=== PATIENT | female | born 1995 | race Two or more races ===

== ENCOUNTER 2017-06-30 15:10 | Observation (INO) | payer MEDICAID ==
[2017-06-30] MEDS ORDERED: PREN-96 PO (15:30)
== END 2017-06-30 16:50 | disposition home or self-care (01) | DRG 566 ==
LOC: LDRP 15:10
PROVIDERS: ADMIT Obstetrics & Gynecology; ATTEND Obstetrics & Gynecology
DX: O26.892 Other specified pregnancy related conditions, second trimester (principal); R10.9 Unspecified abdominal pain; Z3A.00 Weeks of gestation of pregnancy not specified
CPT/HCPCS: 59025; 81002; G0378

== ENCOUNTER 2017-08-28 14:50 | Observation (INO) | payer MEDICAID ==
[~2017-08-28 14:50] MED LIST: PREN-96 PO
== END 2017-08-28 15:45 | disposition home or self-care (01) | DRG 566 ==
LOC: LDRP 14:50
PROVIDERS: ADMIT Obstetrics & Gynecology; ATTEND Obstetrics & Gynecology
DX: O48.0 Post-term pregnancy (principal); Z3A.40 40 weeks gestation of pregnancy
CPT/HCPCS: 59025; 76818; 81002; G0378

== ENCOUNTER 2017-08-30 13:00 | Observation (INO) | payer MEDICAID | END 2017-08-30 14:15 | disposition home or self-care (01) | DRG 566 | LOC: LDRP 13:00 | PROVIDERS: ADMIT Specialist; ATTEND Specialist | DX: O48.0 Post-term pregnancy (principal); O62.9 Abnormality of forces of labor, unspecified; Z3A.40 40 weeks gestation of pregnancy | CPT/HCPCS: 59025; 76817; 76818; 81002; G0378 ==

== ENCOUNTER 2017-08-31 19:18 | Observation (INO) | payer MEDICAID ==
[2017-09-01] MEDS ORDERED: PREN-96 PO (09:38)
== END 2017-08-31 20:35 | disposition home or self-care (01) | DRG 566 ==
LOC: LDRP 19:18
PROVIDERS: ADMIT Specialist; ATTEND Specialist
DX: O62.9 Abnormality of forces of labor, unspecified (principal); O48.0 Post-term pregnancy; Z3A.40 40 weeks gestation of pregnancy
CPT/HCPCS: 59025; 76818; 81002; G0378

== ENCOUNTER 2017-09-01 09:15 | Observation (INO) | payer MEDICAID ==
[2017-09-01] MEDS ORDERED: PREN-96 PO (09:38)
== END 2017-09-01 10:00 | disposition home or self-care (01) | DRG 566 ==
LOC: LDRP 09:15
PROVIDERS: ADMIT Specialist; ATTEND Specialist
DX: O62.9 Abnormality of forces of labor, unspecified (principal); Z3A.40 40 weeks gestation of pregnancy
CPT/HCPCS: 59025; 81002; G0378

== ENCOUNTER 2018-03-22 19:49 | Emergency (ER) | payer SELFPAY ==
[~2018-03-22] VITALS: Ht 160 cm; Wt 61.2 kg
[2018-03-22 20:00] VITALS: BP 106/59
[2018-03-22] MEDS ORDERED: LIDOCAINE W/ EPINEPHRINE 2% INJ 20ML VIAL IJ ONE (20:45)
[2018-03-22] MEDS ORDERED: cefTRIAXone SOD 1,000 MG VL IM ONE (20:45)
[2018-03-22] MEDS ORDERED: LIDOCAINE W/ EPINEPHRINE 1% 20ML VIAL ONE (21:13)
== END 2018-03-22 22:04 | disposition home or self-care (01) ==
LOC: ER 19:49
DX: S61.411A Laceration without foreign body of right hand, initial encounter (principal); Z91.040 Latex allergy status; W25.XXXA Contact with sharp glass, initial encounter; Y93.89 Activity, other specified; Y99.8 Other external cause status; Y92.89 Other specified places as the place of occurrence of the external cause
CPT/HCPCS: 12002; 96372; 99283; J0696

== ENCOUNTER 2018-03-30 11:57 | Emergency (ER) | payer SELFPAY ==
[~2018-03-30] VITALS: Ht 160 cm; Wt 61.2 kg
[2018-03-30 12:19] VITALS: BP 116/73
== END 2018-03-30 13:00 | disposition home or self-care (01) ==
LOC: ER 11:57
DX: S61.411D Laceration without foreign body of right hand, subsequent encounter (principal); Z48.02 Encounter for removal of sutures; Z91.040 Latex allergy status

== ENCOUNTER 2018-10-08 11:00 | Observation (INO) | payer MEDICAID | END 2018-10-08 11:40 | disposition home or self-care (01) | DRG 566 | LOC: LDRP 11:00 | PROVIDERS: ADMIT Obstetrics & Gynecology; ATTEND Obstetrics & Gynecology | DX: O23.42 Unspecified infection of urinary tract in pregnancy, second trimester (principal); E86.0 Dehydration; O21.1 Hyperemesis gravidarum with metabolic disturbance; Z3A.27 27 weeks gestation of pregnancy | CPT/HCPCS: 59025; 81002; G0378 ==

== ENCOUNTER 2018-10-15 03:38 | Observation (INO) | payer MEDICAID | END 2018-10-15 05:23 | disposition home or self-care (01) | DRG 566 | LOC: LDRP 03:38 | PROVIDERS: ADMIT Specialist; ATTEND Specialist | DX: O21.1 Hyperemesis gravidarum with metabolic disturbance (principal); O23.43 Unspecified infection of urinary tract in pregnancy, third trimester; O26.893 Other specified pregnancy related conditions, third trimester; O98.513 Other viral diseases complicating pregnancy, third trimester; J00 Acute nasopharyngitis [common cold]; R10.9 Unspecified abdominal pain; Z3A.28 28 weeks gestation of pregnancy | CPT/HCPCS: 59025; 81002; G0378; 96365; 96366 ==

== ENCOUNTER 2019-01-04 08:20 | Inpatient (IN) | payer MEDICAID ==
[~2019-01-04] VITALS: Ht 160 cm; Wt 72.6 kg
[2019-01-04] MEDS ORDERED: LACT. RINGERS/OXYTOCIN 20UNITS 1,000 ML IV SCH (09:07)
[2019-01-04] MEDS ORDERED: DERMOPLAST 60ML BOTTLE TOP PRN (09:15)
[2019-01-04] MEDS ORDERED: WITCH HAZEL-GLYCERIN PAD TOP PRN (09:15)
[2019-01-04] MEDS ORDERED: NALBUPHINE HCL 10 MG/1ml INJECTION IM PRN (09:15)
[2019-01-04] MEDS ORDERED: PHISODERM TOP SOLN 240ML BTL TOP PRN (09:15)
[2019-01-04] MEDS ORDERED: LIDOCAINE 1% (LOCAL ANESTH.) PF 5ml SDV IJ ONE (09:15)
[2019-01-04 09:55] LABS: Urine Bacteria FEW /hpf (None Seen); Urine Blood Negative /uL (Negative); Urine Mucus FEW (None Seen); Urine Specific Gravity 1.021 (1.001-1.035); Urine WBC 5 /hpf (0 - 5)
[2019-01-04] MEDS: LACTATED RINGER'S 1,000 ML IV SCH (09:55)
[2019-01-04 09:57] LABS: Basophils # (auto) 0 uL; Basophils % (auto) 0.3 % (0.0-2.0); Eosinophils # (auto) 0 uL; Eosinophils % (auto) 0.6 % (0.0-7.0); Hematocrit 36.1 % (36.0-46.0); Hemoglobin 12.4 g/dL (12.2-16.2); Lymphocytes # (auto) 1.5 uL; Lymphocytes % (auto) 19.7 % (10.0-50.0); Mean Corpuscular Hemoglobin 31.7 pg (28.0-32.0); Mean Corpuscular Hgb Conc. 34.3 g/dL (32.0-36.0); Mean Corpuscular Volume 92.6 fL (80.0-100.0); Monocytes # (auto) 0.6 uL; Monocytes % (auto) 7.1 % (0.0-12.0); Neutrophils # (auto) 5.6 uL; Neutrophils % (auto) 72.3 % (37.0-80.0); Nucleated Red Blood Cells % 0.1 %; Platelet Count (auto) 174 10^3/uL (140-450); Red Cell Distribution Width 14.7 % (11.8-14.3); White Blood Cell 7.8 10^3/uL (4.4-10.8)
[2019-01-04 10:05] LABS: INR 0.88 (0.9-1.15); Prothrombin Time 9.5 sec (9.27-12.13)
[2019-01-04 10:09] LABS: Albumin 2.8 g/dL (3.4-5.0); Calcium 8.5 mg/dL (8.5-10.1); Potassium 3.6 mmol/L (3.5-5.1)
[2019-01-04 10:12] LABS: Bilirubin, Total 0.3 mg/dL (0.2-1.0); Total Protein 6.6 g/dL (6.4-8.2)
[2019-01-05] MEDS ORDERED: TERBUTALINE SULFATE 1 MG/ML 1ML VIAL SC ONE (00:30)
[2019-01-05] MEDS ORDERED: PROMETHAZINE HCL 25 MG/ML 1ML IV PRN (00:30)
[2019-01-05] MEDS: LACTATED RINGER'S 1,000 ML IV SCH ×3 (01:07→06:41)
[2019-01-05] MEDS ORDERED: ePHEDrine SULFATE 50 MG/ML AMP IV ONE ×2 (05:30→05:45)
[2019-01-05] MEDS ORDERED: NALOXONE HCL 0.4 MG/ML VIAL IV ONE ×2 (05:30→05:45)
[2019-01-05] MEDS ORDERED: LIDOCAINE HCL 2 %PF INJ 10ML AMP IJ ONE (05:30)
[2019-01-05] MEDS ORDERED: fentaNYL W ROPIVACAINE 150 ML EPI SCH ×2 (05:30→05:45)
[2019-01-05] MEDS ORDERED: LACTATED RINGER'S 500 ML IV ONE (05:34)
[2019-01-05] MEDS ORDERED: SODIUM CHLORIDE 0.9% 500 ML IV PRN (05:34)
[2019-01-05] MEDS ORDERED: LIDOCAINE W/ EPINEPHRINE 1 % INJ 30ML ONE (05:40)
[2019-01-05] MEDS ORDERED: fentaNYL CITRATE 100 MCG/2 ML VL IV ONE ×2 (05:45→06:00)
[2019-01-05] MEDS ORDERED: LIDOCAINE 2%HCL (LOCAL ANESTH.) INJ 20ML MDV IJ ONE (05:45)
[2019-01-05] MEDS ORDERED: fentaNYL CITRATE 100 MCG/2 ML VL ONE (05:59)
[2019-01-05 06:07] LABS: RPR Non Reactive (Non Reactive)
[2019-01-05] MEDS ORDERED: LIDOCAINE W/ EPINEPHRINE 1% 20ML VIAL ID ONE (06:45)
[2019-01-05] MEDS ORDERED: LACT. RINGERS/OXYTOCIN 20UNITS 1,000 ML IV SCH (07:30)
[2019-01-05] MEDS ORDERED: IBUPROFEN 600 MG TAB PO PRN (12:00)
[2019-01-05 13:00] VITALS: BP 107/55
[2019-01-05 16:00] VITALS: BP 112/57
[2019-01-05 19:00] VITALS: BP 113/64
[2019-01-05 22:49] VITALS: BP 105/50
[2019-01-06 02:45] VITALS: BP 116/64
[2019-01-06 07:15] VITALS: BP 112/60
--- NOTE | 2019-01-06 10:00 | NUR ---
Teaching: Reviewed information in [facility] booklet with patient. Discussed benefits of and risks associated with not . Discussed different positions, proper latch, feeding cues, and baby-led . Provided information of medication side effects related to . All questions and concerns addressed at this time. Patient verbalized understanding of information.
[2019-01-06 10:40] VITALS: BP 112/59
--- NOTE | 2019-01-06 11:50 | NUR ---
Discharge: Discharge instructions given as ordered. Pt encouraged to follow up with DIESEL TRUCK CRANE OPERATOR as instructed. All questions and concerns addressed. Patient verbalized understanding. Medication reconciliation completed and copy given to patient. All required/requested vaccines given and copies of vaccinations given to patient. Patient encouraged to prepare to depart unit.
--- NOTE | 2019-01-06 13:00 | NUR ---
Discharge: Patient taken to vehicle via wheelchair with all personal belongings, accompanied by staff and family member. No distress noted at time of departure, no adverse changes in status since initial assessment.
== END 2019-01-06 13:00 | disposition home or self-care (01) | DRG 560 ==
LOC: LDRP 08:20
PROVIDERS: ADMIT Specialist; ATTEND Specialist
PROC: 10E0XZZ Delivery of Products of Conception, External Approach (ICD-10-PCS; principal; 2019-01-05)
PROC: 3E0R3BZ Introduction of Anesthetic Agent into Spinal Canal, Percutaneous Approach (ICD-10-PCS; 2019-01-05)
PROC: 00HU33Z Insertion of Infusion Device into Spinal Canal, Percutaneous Approach (ICD-10-PCS; 2019-01-05)
PROC: 10907ZC Drainage of Amniotic Fluid, Therapeutic from Products of Conception, Via Natural or Artificial Opening (ICD-10-PCS; 2019-01-05)
PROC: 0UQGXZZ Repair Vagina, External Approach (ICD-10-PCS; 2019-01-05)
DX: O71.4 Obstetric high vaginal laceration alone (principal); Z37.0 Single live birth; Z3A.39 39 weeks gestation of pregnancy
CPT/HCPCS: 36415; 59025; 59409; 62282; 80053; 81001; 85025; 85610; 85730; 86592; 86850; 86900; 86901; 87340; 96361; 96365; 96366; 96374; G0378; J2590; J3010

== ENCOUNTER 2020-10-27 11:25 | Observation (INO) | payer MEDICAID, OTHER ==
[~2020-10-27] VITALS: Ht 160 cm; Wt 69.4 kg
== END 2020-10-27 14:20 | disposition home or self-care (01) ==
LOC: LDRP 11:25
PROVIDERS: ADMIT Specialist; ATTEND Specialist
DX: O62.9 Abnormality of forces of labor, unspecified (principal); Z3A.31 31 weeks gestation of pregnancy; Z91.040 Latex allergy status
CPT/HCPCS: 59025; 76815; 81002; G0378

== ENCOUNTER 2020-11-22 18:15 | Observation (INO) | payer MEDICAID | END 2020-11-22 21:23 | disposition home or self-care (01) | LOC: LDRP 18:15 | PROVIDERS: ADMIT Obstetrics & Gynecology; ATTEND Obstetrics & Gynecology | DX: O62.9 Abnormality of forces of labor, unspecified (principal); Z3A.34 34 weeks gestation of pregnancy | CPT/HCPCS: 59025; 76815; 81002; G0378 ==

== ENCOUNTER 2020-12-26 00:14 | Observation (INO) | payer MEDICAID | END 2020-12-26 01:15 | disposition home or self-care (01) | LOC: LDRP 00:14 | PROVIDERS: ADMIT Obstetrics & Gynecology; ATTEND Obstetrics & Gynecology | DX: O62.9 Abnormality of forces of labor, unspecified (principal); Z3A.39 39 weeks gestation of pregnancy | CPT/HCPCS: 59025; 81002; G0378 ==

== ENCOUNTER 2020-12-30 19:15 | Observation (INO) | payer MEDICAID ==
[~2020-12-30] VITALS: Ht 160 cm; Wt 73.5 kg
== END 2020-12-30 22:10 | disposition home or self-care (01) ==
LOC: LDRP 19:15
PROVIDERS: ADMIT Obstetrics & Gynecology; ATTEND Obstetrics & Gynecology
DX: O48.0 Post-term pregnancy (principal); O26.893 Other specified pregnancy related conditions, third trimester; N89.8 Other specified noninflammatory disorders of vagina; O62.9 Abnormality of forces of labor, unspecified; Z3A.40 40 weeks gestation of pregnancy
CPT/HCPCS: 59025; 76818; 81002; G0378

== ENCOUNTER 2021-01-01 14:32 | Observation (INO) | payer MEDICAID | END 2021-01-01 15:55 | disposition home or self-care (01) | LOC: LDRP 14:32 | PROVIDERS: ADMIT Specialist; ATTEND Specialist | DX: O48.0 Post-term pregnancy (principal); O41.03X0 Oligohydramnios, third trimester, not applicable or unspecified; Z3A.40 40 weeks gestation of pregnancy | CPT/HCPCS: 59025; 76818; 81002; G0378 ==

== ENCOUNTER 2021-01-03 12:57 | Inpatient (IN) | payer MEDICAID ==
[~2021-01-03] VITALS: Ht 30.5 cm; Wt 0.5 kg
[2021-01-03] MEDS ORDERED: METHYLERGONOVINE MALEATE 0.2 MG/ML AMP IM PRN (14:00)
[2021-01-03] MEDS ORDERED: TERBUTALINE SULFATE 1 MG/ML 1ML VIAL SC PRN (14:00)
[2021-01-03] MEDS ORDERED: ONDANSETRON HCL 4 MG/2 ML VIAL IV PRN (14:00)
[2021-01-03] MEDS ORDERED: DERMOPLAST 60ML BOTTLE TOP PRN (14:00)
[2021-01-03] MEDS ORDERED: CARBOPROST TROMETHAMINE 250 MCG/1ML VIAL IM PRN (14:00)
[2021-01-03] MEDS ORDERED: LACT. RINGERS/OXYTOCIN 20UNITS 1,000 ML IV SCH (14:00)
[2021-01-03] MEDS ORDERED: WITCH HAZEL-GLYCERIN PAD TOP PRN (14:00)
[2021-01-03] MEDS ORDERED: miSOPROStol 100 mcg TAB PR PRN (14:00)
[2021-01-03] MEDS ORDERED: miSOPROStol 100 mcg TAB SL PRN (14:00)
[2021-01-03] MEDS ORDERED: LACT. RINGERS/OXYTOCIN 20UNITS 1,000 ML IV ONE (14:00)
[2021-01-03] MEDS ORDERED: LIDOCAINE 2%HCL (LOCAL ANESTH.) INJ 20ML MDV IJ PRN (14:00)
[2021-01-03] MEDS ORDERED: PHISODERM TOP SOLN 240ML BTL TOP PRN (14:00)
[2021-01-03] MEDS: LACTATED RINGER'S 1,000 ML IV SCH ×2 (14:35→18:31)
[2021-01-03 14:48] LABS: Basophils # (auto) 0 10 ^3/uL (0-0.2); Basophils % (auto) 0.5 % (0.0-2.0); Eosinophils # (auto) 0 10 ^3/uL (0-0.8); Eosinophils % (auto) 0.6 % (0.0-7.0); Hematocrit 31.3 % (36.0-46.0); Hemoglobin 11.1 g/dL (12.2-16.2); Lymphocytes # (auto) 1.5 10 ^3/uL (0.4-5.4); Lymphocytes % (auto) 20.3 % (10.0-50.0); Mean Corpuscular Hemoglobin 31.7 pg (28.0-32.0); Mean Corpuscular Hgb Conc. 35.3 g/dL (32.0-36.0); Mean Corpuscular Volume 89.7 fL (80.0-100.0); Monocytes # (auto) 0.5 10 ^3/uL (0-1.3); Monocytes % (auto) 6.6 % (0.0-12.0); Neutrophils # (auto) 5.3 10 ^3/uL (1.6-8.6); Nucleated Red Blood Cells % 0.1 %; Platelet Count (auto) 183 10^3/uL (140-450); Red Cell Distribution Width 15.8 % (11.8-14.3); White Blood Cell 7.3 10^3/uL (4.4-10.8)
[2021-01-03 15:02] LABS: Albumin 2.8 g/dL (3.4-5.0); BUN/Creatinine Ratio 17.4; Calcium 8.3 mg/dL (8.5-10.1); Potassium 3.8 mmol/L (3.5-5.1)
[2021-01-03 15:05] LABS: Bilirubin, Total 0.3 mg/dL (0.2-1.0); Total Protein 6.5 g/dL (6.4-8.2)
[2021-01-03 15:06] LABS: INR 0.91 (0.9-1.15); Partial Thromboplastin Time 26.6 sec (23.0-31.2)
[2021-01-03 15:26] LABS: Alcohol, Urine < 3.0 mg/dL (0-10); Amphetamine Screen, Urine NEGATIVE (NEGATIVE); Barbiturate Scree,Urine NEGATIVE (NEGATIVE); Benzodiazephine Screen, Urine NEGATIVE (NEGATIVE); Cannabinoid Screen, Urine NEGATIVE (NEGATIVE); Cocaine Screen, Urine NEGATIVE (NEGATIVE); Opiate Scree,Urine NEGATIVE (NEGATIVE); Phencyclidine Screen, Urine NEGATIVE (NEGATIVE); Urine Bacteria FEW /hpf (None Seen); Urine Blood Negative /uL (Negative); Urine Budding Yeast FEW /hpf (None Seen); Urine Specific Gravity 1.011 (1.001-1.035); Urine WBC 5 /hpf (0 - 5)
[2021-01-03] MEDS ORDERED: miSOPROStol 50 MCG per PRE-CUT 1/2 TAB PO PRN (15:45)
[2021-01-03] MEDS ORDERED: ROPIVACAINE HCL 200 ML EPI SCH ×3 (22:00→23:30)
[2021-01-03] MEDS ORDERED: fentaNYL CITRATE 100 MCG/2 ML VL IV ONE ×2 (22:00→23:30)
[2021-01-03] MEDS ORDERED: LIDOCAINE HCL 2 %PF INJ 10ML AMP IJ ONE (22:00)
[2021-01-03] MEDS ORDERED: ePHEDrine SULFATE 50 MG/ML AMP IV ONE ×2 (22:00→23:30)
[2021-01-03] MEDS ORDERED: LACTATED RINGER'S 1,000 ML IV ONE (22:00)
[2021-01-03] MEDS ORDERED: DIPHENOXYLATE W/ATROPINE 2.5 MG TAB PO SCH (22:00)
[2021-01-03] MEDS ORDERED: NALOXONE HCL 0.4 MG/ML VIAL IV ONE ×2 (22:00→23:30)
[2021-01-03] MEDS ORDERED: ROPIVACAINE 0.5% (5MG/ML) 20ML AMPULE IJ ONE (22:00)
[2021-01-03] MEDS ORDERED: LACTATED RINGER'S 500 ML IV ONE (23:30)
[2021-01-03] MEDS ORDERED: SODIUM CHLORIDE 0.9% 500 ML IV PRN (23:30)
[2021-01-03] MEDS ORDERED: LIDOCAINE 2%HCL (LOCAL ANESTH.) INJ 20ML MDV IJ ONE (23:30)
[2021-01-04] MEDS: LACTATED RINGER'S 1,000 ML IV SCH ×2 (02:43→14:00)
[2021-01-04 07:30] VITALS: BP 100/55
[2021-01-04] MEDS: IBUPROFEN 600 MG TAB PO PRN ×3 (09:11→22:42)
[2021-01-04 11:10] VITALS: BP 102/58
[2021-01-04 15:07] VITALS: BP 111/72
[2021-01-04 19:00] VITALS: BP 110/61
[2021-01-04 23:15] VITALS: BP 104/58
[2021-01-05 03:07] VITALS: BP 112/61
[2021-01-05] MEDS ORDERED: POTASSIUM CHL 20 Meq TABLET PO ONE (07:00)
[2021-01-05 07:08] VITALS: BP 96/50
[2021-01-05 08:06] LABS: RPR Non Reactive (Non Reactive)
== END 2021-01-05 08:55 | disposition home or self-care (01) | DRG 560 ==
LOC: LDRP 12:57
PROVIDERS: ADMIT Specialist; ATTEND Specialist
PROC: 10E0XZZ Delivery of Products of Conception, External Approach (ICD-10-PCS; principal; 2021-01-04)
PROC: 3E0R3BZ Introduction of Anesthetic Agent into Spinal Canal, Percutaneous Approach (ICD-10-PCS; 2021-01-04)
PROC: 00HU33Z Insertion of Infusion Device into Spinal Canal, Percutaneous Approach (ICD-10-PCS; 2021-01-04)
PROC: 3E0D7GC Introduction of Other Therapeutic Substance into Mouth and Pharynx, Via Natural or Artificial Opening (ICD-10-PCS; 2021-01-04)
DX: O48.0 Post-term pregnancy (principal); Z20.822 Contact with and (suspected) exposure to COVID-19; O76 Abnormality in fetal heart rate and rhythm complicating labor and delivery; Z37.0 Single live birth; Z3A.41 41 weeks gestation of pregnancy
CPT/HCPCS: 36415; 59025; 62282; 80053; 80307; 81001; 85025; 85610; 85730; 86592; 86850; 86900; 86901; 87426; 94762; 96360; 96361; 96365; G0378; J2590

== ENCOUNTER 2025-03-12 11:26 | Outpatient (CLI) | payer MEDICAID ==
[2025-03-12 11:46] LABS: Basophils # (auto) 0 10 ^3/uL (0-0.2); Basophils % (auto) 0.5 % (0.0-2.0); Eosinophils # (auto) 0 10 ^3/uL (0-0.8); Eosinophils % (auto) 0.2 % (0.0-7.0); Hematocrit 29.6 % (36.0-46.0); Hemoglobin 10.5 g/dL (12.2-16.2); Lymphocytes # (auto) 1.4 10 ^3/uL (0.4-5.4); Lymphocytes % (auto) 17.2 % (10.0-50.0); Mean Corpuscular Hemoglobin 30.6 pg (28.0-32.0); Mean Corpuscular Hgb Conc. 35.3 g/dL (32.0-36.0); Mean Corpuscular Volume 86.5 fL (80.0-100.0); Monocytes # (auto) 0.4 10 ^3/uL (0-1.3); Monocytes % (auto) 5.2 % (0.0-12.0); Neutrophils # (auto) 6.3 10 ^3/uL (1.6-8.6); Neutrophils % (auto) 76.9 % (37.0-80.0); Platelet Count (auto) 175 10^3/uL (140-450); Red Blood Cells 3.42 10^6/uL (4.0-5.20); Red Cell Distribution Width 16.2 % (11.8-14.3); White Blood Cell 8.3 10^3/uL (4.4-10.8)
[2025-03-15 04:07] LABS: Chlamydia Trachomatis, NAA Negative (Negative); Neisseria gonorrhoeae, NAA Negative (Negative)
== END 2025-03-12 17:00 | disposition home or self-care (01) ==
LOC: LAB 11:26
PROVIDERS: ATTEND Obstetrics & Gynecology
DX: Z34.80 Encounter for supervision of other normal pregnancy, unspecified trimester (principal); Z72.51 High risk heterosexual behavior; Z3A.00 Weeks of gestation of pregnancy not specified
CPT/HCPCS: 36415; 85025; 86780

== ENCOUNTER 2025-04-02 17:30 | Observation (INO) | payer MEDICAID ==
--- NOTE | 2025-04-02 19:20 | DVHDS2 ---
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 She was painting and slipped. She caught herself and did not fall. PNC with Dr. Alexander, uncomplicated. Denies UCs/LOF/VB/IGNACIO/vision changes/RUQ pain. Endorses +FM. 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 Condition on Discharge: Stable Disposition: Home Discharge Instructions: Diet: Regular Activity: No Restrictions, As Tolerated Medications: see med list Follow Up Care: Specialist: f/u with Dr. Alexander in office as scheduled on 04/04/25 Discharge Statement: "Patient was advised to return to the ER or call 911 if any headaches, dizziness, shortness of breath, chest pain, abdominal pain, bleeding, fevers, or worsening of medical condition. Patient was counseled about treatment plan, medications, possible side effects, patientverbalized understanding. All questions were answered to the best of my ability. This discharge took greater then 30 minutes in planning, reviewing documentation, counseling the patient, and discussing with other team members." Visit Coding OBGYN Date of Service: Apr 02, 2025 Billing Provider: CRISS BALBUENA CNM MEDICAID BUSINESS ANALYST Common Visit Codes: 54937-OCRYBQY OBS CARE (MOD) MEDICAID BUSINESS ANALYST Procedure Codes: 25581-98- NON-STRESS TEST CRISS BALBUENA CNM Apr 02, 2025 19:20
--- NOTE | 2025-04-02 19:39 | DVH ---
ULTRASOUND BIOPHYSICAL PROFILE CLINICAL HISTORY: Fall COMPARISON: None TECHNIQUE: Real-time grayscale, color flow and M-mode imaging of the gravid uterus is performed. FINDINGS: Single living intrauterine gestation. Vertex presentation. heart rate 180 beats per minute. Placenta is fundal. No definite evidence of abruption or previa. Amniotic fluid index: 11.8 cm Biophysical profile: 8 out of 8. (2 breathing, 2 activity, 2 tone, 2 [place]) IMPRESSION: Biophysical profile score 8/8.
== END 2025-04-02 19:12 | disposition home or self-care (01) ==
LOC: LDRP 17:30
PROVIDERS: ADMIT Obstetrics & Gynecology; ATTEND Obstetrics & Gynecology
DX: O26.893 Other specified pregnancy related conditions, third trimester (principal); R55 Syncope and collapse; Z3A.38 38 weeks gestation of pregnancy; Z98.890 Other specified postprocedural states; Z79.899 Other long term (current) drug therapy
CPT/HCPCS: 59025; 76819; 81002; 94760; G0378

== ENCOUNTER 2025-04-11 06:40 | Observation (INO) | payer MEDICAID ==
--- NOTE | 2025-04-12 11:23 | DVH ---
CLINICAL HISTORY: Term . COMPARISON: US BIOPHYSICAL PROFILE on DOS: 04/02/25 TECHNIQUE: biophysical profile was performed. Transabdominal sonographic images of the fetus we re obtained. FINDINGS: The fetus is in cephalic position. heart rate measures 129 BPM. Amniotic fluid index measures 11.2 cm. The placenta is posterior in position without evidence of previa or abruption. BPP profile is an overall score of 8/8, with 2/2 points for breathing, with at least one episode of breathing over a 30 second duration during a 30 minute observation, 2/2 points for m ovements, with 3 or more discrete body or limb movements, 2/2 points for tone, with one or more episodes of extremity extension with return to flexion, or opening and closing of hand, and 2/ 2 points for amniotic fluid, with at least 1 pocket of amniotic fluid that measures 2 cm in 2 perpend icular planes. IMPRESSION: BPP score of 8/8.
--- NOTE | 2025-04-13 08:21 | DVHDS2 ---
Physician Discharge Progress N Final Diagnosis: 40 WKS LABOR CHECK Operations or Procedures: Operations or Procedures NSTR REACTIVE REVIWED,DENNYSO Consultations: Consultations REFUSES INDUCTION Condition on Discharge: Good Disposition: Home Discharge Instructions: Diet: Regular Activity: No Restrictions, As Tolerated Medications: NA Follow Up Care: Specialist: 2D Discharge Statement: "Patient was advised to return to the ER or call 911 if any headaches, dizziness, shortness of breath, chest pain, abdominal pain, bleeding, fevers, or worsening of medical condition. Patient was counseled about treatment plan, medications, possible side effects, patientverbalized understanding. All questions were answered to the best of my ability. This discharge took greater then 30 minutes in planning, reviewing documentation, counseling the patient, and discussing with other team members." Visit Coding OBGYN Date of Service: Apr 12, 2025 Billing Provider: SANCHEZ IRAHETA DO UNEMPLOYMENT SPECIALIST Common Visit Codes: 45000-[id number] OBS CARE (HIGH) UNEMPLOYMENT SPECIALIST Procedure Codes: 54377-55- NON-STRESS TEST SANCHEZ IRAHETA DO Apr 13, 2025 08:21
== END 2025-04-12 12:14 | disposition home or self-care (01) ==
LOC: LDRP 04-12 10:21
PROVIDERS: ADMIT Obstetrics & Gynecology; ATTEND Obstetrics & Gynecology
DX: Z36.89 Encounter for other specified antenatal screening (principal); Z3A.40 40 weeks gestation of pregnancy; Z79.899 Other long term (current) drug therapy; Z98.890 Other specified postprocedural states
CPT/HCPCS: 59025; 76819; 81002; G0378

== ENCOUNTER 2025-04-14 06:34 | Observation (INO) | payer MEDICAID ==
--- NOTE | 2025-04-14 13:47 | DVH ---
CLINICAL HISTORY: post dates COMPARISON: US BIOPHYSICAL PROFILE on DOS: 04/12/25, US BIOPHYSICAL PROFILE on DOS: 04/02/25 TECHNIQUE: biophysical profile was performed. Transabdominal sonographic images of the fetus we re obtained. FINDINGS: The fetus is in cephalic position. heart rate measures 147 BPM. Amniotic fluid index measures 9.6 cm. The placenta is posterior in position without evidence of previa or abruption. The u mbilical cord wraps at least partially around the patient's neck. BPP profile is an overall score of 8/8, with 2/2 points for breathing, with at least one episode of breathing over a 30 second duration during a 30 minute observation, 2/2 points for m ovements, with 3 or more discrete body or limb movements, 2/2 points for tone, with one or more episodes of extremity extension with return to flexion, or opening and closing of hand, and 2/ 2 points for amniotic fluid, with at least 1 pocket of amniotic fluid that measures 2 cm in 2 perpend icular planes. IMPRESSION: 1. BPP score of 8/8. 2. Possible nuchal cord seen.
--- NOTE | 2025-04-15 01:20 | DVHDS2 ---
Discharge Summary Date of Admission Apr 14, 2025 at 13:04 Date of Discharge: Apr 14, 2025 Admitting Diagnosis Forty and 3 7th post-dates here for NST which was performed as well as obstetric ultrasound found to be reassuring Wounds: None Labs/Diagnostic Data: None Brief Hx & Hospital Course: Patient 40 and 3 7th for evaluation reassuring heart tones in his to per form ratio Consults/Reason for consult None Operations or Procedures None Condition at Discharge: Good Final Diagnosis/Problems List 43 since week post dates reassuring heart tones reassuring fluid Discharge Disposition: Home Discharge Instruct/Medications Diet: Regular Activity: No Restrictions, As Tolerated Follow Up/Referral: As scheduled biweekly NST Scheduled Vit W/ Ferrous Fumara ( One Daily), 1 TAB PO DAILY, (Reported) Discharge Statement: "Patient was advised to return to the ER or call 911 if any headaches, dizziness, shortness of breath, chest pain, abdominal pain, bleeding, fevers, or worsening of medical condition. Patient was counseled about treatment plan, medications, possible side effects, patientverbalized understanding. All questions were answered to the best of my ability. This discharge took greater then 30 minutes in planning, reviewing documentation, counseling the patient, and discussing with other team members." ASSESSMENT ASSESSMENT Assessment Visit Coding OBGYN Date of Service: Apr 14, 2025 Billing Provider: LINCOLN ALLEN DO FURNACE MECHANIC HELPER Common Visit Codes: [id number] INP/OBS CARE(HIGH), 03861-RFP/OBS SAME DATE (LOW), 99117-HNK/OBS SAME DATE (MOD), 41250-RUQ/OBS SAME DATE (HIGH) FURNACE MECHANIC HELPER Procedure Codes: 30449-08- NON-STRESS TEST LINCOLN ALLEN DO Apr 15, 2025 01:20
== END 2025-04-14 14:09 | disposition home or self-care (01) ==
LOC: LDRP 13:04
PROVIDERS: ADMIT Obstetrics & Gynecology; ATTEND Obstetrics & Gynecology
DX: O48.0 Post-term pregnancy (principal); Z3A.40 40 weeks gestation of pregnancy; Z98.890 Other specified postprocedural states; Z79.899 Other long term (current) drug therapy
CPT/HCPCS: 59025; 76819; 81002; 94760; G0378

== ENCOUNTER 2025-04-15 01:19 | Inpatient (IN) | payer MEDICAID ==
[~2025-04-15] VITALS: Ht 193 cm; Wt 61.2 kg
[2025-04-15] MEDS: LACTATED RINGER'S 1,000 ML IV SCH (01:45)
[2025-04-15] MEDS: NALOXONE HCL 0.4 MG/ML VIAL IV ONE (01:45)
[2025-04-15] MEDS: Lidocaine W-Epinephrine 1.5%-1:200,000 INJ 10ml Vial IJ ONE (01:45)
[2025-04-15] MEDS: LIDOCAINE HCL 2 %PF INJ 10ML AMP IJ ONE (01:45)
[2025-04-15] MEDS: LACTATED RINGER'S 1,000 ML IV ONE (01:45)
[2025-04-15] MEDS: fentaNYL CITRATE 100 MCG/2 ML VL IV ONE (01:45)
[2025-04-15 02:16] LABS: Hematocrit 30.6 % (36.0-46.0); Hemoglobin 10.5 g/dL (12.2-16.2); Mean Corpuscular Hemoglobin 28.7 pg (28.0-32.0); Mean Corpuscular Volume 83.7 fL (80.0-100.0); Nucleated Red Blood Cells % 0.0 %
[2025-04-15 02:37] LABS: INR 0.9 (0.9-1.15); Partial Thromboplastin Time 26.6 SEC (24.5-34.5); Prothrombin Time 9.6 sec (9.3-11.8)
[2025-04-15 02:39] LABS: Alanine Aminotransferase 13 U/L (7-40); Albumin 3.7 g/dL (3.2-4.8); Anion Gap 12 (5-15); BUN/Creatinine Ratio 14.1 (10.0-20.0); Bilirubin, Total 0.4 mg/dL (0.2-1.0); Calcium 9.0 mg/dL (8.7-10.4); Glucose 98 mg/dL (74-106); Sodium 138 mmol/L (136-145); Total Protein 6.3 g/dL (5.7-8.2)
[2025-04-15 03:03] LABS: Alkaline Phosphatase 134 U/L (46-116); Blood Urea Nitrogen 9 mg/dL (9-23); Carbon Dioxide 18 mmol/L (20-31); Chloride 108 mmol/L (98-107); Potassium 3.4 mmol/L (3.5-5.1)
[2025-04-15] MEDS: METHYLERGONOVINE MALEATE 0.2 MG/ML AMP IM ONE (03:33)
[2025-04-15] MEDS: LACT. RINGERS/OXYTOCIN 20UNITS 500 ML IV ONE ×2 (03:36→03:37)
[2025-04-15] MEDS ORDERED: ONDANSETRON HCL 4 MG/2 ML VIAL IV PRN (05:00)
[2025-04-15] MEDS ORDERED: ACETAMINOPHEN 325 MG TAB PO PRN (05:00)
[2025-04-15] MEDS: NALBUPHINE HCL 10 MG/1ml INJECTION IV PRN (05:08)
[2025-04-15] MEDS: LIDOCAINE 2%HCL (LOCAL ANESTH.) INJ 20ML MDV IJ PRN (05:08)
[2025-04-15] MEDS: DERMOPLAST 60ML BOTTLE TOP PRN (05:09)
[2025-04-15] MEDS: PHISODERM TOP SOLN 240ML BTL TOP PRN (05:09)
[2025-04-15] MEDS: WITCH HAZEL-GLYCERIN PAD TOP PRN (05:09)
--- NOTE | 2025-04-15 05:42 | DVHHP2 ---
Chief Complaints Chief Complaints Labor with history of precipitous delivery 5 cm on arrival History of Present Complaints History of Present Complaints Patient has good care Past Medical History Past Surgical History No significant contributory past surgical history OB History OB History OB History No significant abnormal Ob history Allergies and Medications Allergies: Coded Allergies: Latex (Verified Allergy, Mild, ITCHING, PINK, SWOLLEN AREAS, 09/02/17) ON ONE OCCASION WITH A BANIAID WHEN PT WAS YOUNGER. Home Meds Reported Medications Vit W/ Ferrous Fumara ( One Daily) Daily Tab, 1 TAB PO DAILY, #90 TAB 3 Refills 06/30/17 Current Medications Current Medications Medications (Trade) Dose Ordered Sig/Iva Route PRN Reason Start Time Stop Time Status Last Admin Lactated Ringer's 1,000 ml @ 125 mls/hr Q8H IV 04/15/25 01:45 Nalbuphine HCl (Nubain) 10 mg Q4HP PRN IV MODERATE PAIN (4-6 PAIN SCALE) 04/15/25 01:45 Witch Georgina (Tucks) 1 pad PRN PRN TOP PERINEAL AREA DISCOMFORT 04/15/25 01:45 04/15/25 05:09 Sodium Lauryl Sulfate (Phisoderm) 240 ml PRN PRN TOP PERINEAL AREA DISCOMFORT 04/15/25 01:45 04/15/25 05:09 Benzocaine (Dermoplast) 1 applic PRN PRN TOP PERINEAL AREA DISCOMFORT 04/15/25 01:45 04/15/25 05:09 Lidocaine HCl (Xylocaine) 40 ml ONCE PRN IJ PERINEAL AREA DISCOMFORT 04/15/25 01:45 Fentanyl/ Ropivacaine 200 ml @ 0 mls/hr UD EPI 04/15/25 01:45 04/17/25 01:44 Ibuprofen (Motrin Tablet) 600 mg Q6HP PRN PO MODERATE PAIN (4-6 PAIN SCALE) 04/15/25 05:00 Acetaminophen (Tylenol Tablet) 650 mg Q4HP PRN PO MILD PAIN (1-3 PAIN SCALE) 04/15/25 05:00 Ondansetron HCl (Zofran) 4 mg Q4HP PRN IV NAUSEA / VOMITING 04/15/25 05:00 Docusate Sodium (Colace Capsule) 200 mg HS PO 04/15/25 22:00 Family & Social History Social History Negative Review of Systems Review of Systems No significant neuro endocrine musculoskeletal cardiopulmonary lapidarist pathology OB Admission Exam Vitals Vitals: Vital Signs Date Time Temp Pulse Resp B/P (MAP) Pulse Ox O2 Delivery O2 Flow Rate FiO2 04/15/25 04:11 Room Air Physical Exam Alert awake oriented x3 extreme the anxious secondary to contraction pain requesting epidural heart tones reassuring sina 2-310 minutes Assessment/Plan Assessment Assessment Active labor rubella immune hepatitis B negative group B strep negative urine drug screen negative A positive 40 and 4 weeks IUP active labor RPR negative Admitting Diagnosis: Onset of Labor Plan Plan: Expectant management anesthesia notified for epidural Visit Coding OBGYN Date of Service: Apr 15, 2025 Billing Provider: LINCOLN ALLEN DO HOUSING INSPECTORS Common Visit Codes: 30957-PQO/OBS SAME DATE (HIGH) HOUSING INSPECTORS Procedure Codes: 35014-LQX DEL INCLUDING LINCOLN ALLEN DO Apr 15, 2025 05:42
--- NOTE | 2025-04-15 05:46 | LDN2 ---
Labor and Delivery Note Date 04/15/25 Age 29 4 Para 3 AB 0 EDC 04/10/2025 EGA 40 12/13 Diagnosis Active labor intact membranes Vaginal Delivery: VTX Vacuum Assisted: No Placenta: Spontaneous Sex: Female Weight 8lbs Apgars 8/9 Nuchal Cord Transected: No Amniotic Fluid: Meconium Stained (Delee suctioned on delivery) Anesthesia none Episiotomy: No Extension: No Repaired with n/a EBL 100cc Labs Laboratory Tests 01/04/19 09:30: Hepatitis B Surface Antigen Negative Blood Bank 04/15/25 01:54: Blood Type A POSITIVE Complications none Conditions stable Tobacco Grader none present nor needed Visit Coding OBGYN Date of Service: Apr 15, 2025 Billing Provider: LINCOLN ALLEN DO STRUCTURES ENGINEER Common Visit Codes: 72556-LNJ/OBS SAME DATE (HIGH) STRUCTURES ENGINEER Procedure Codes: 56178-XUS DEL INCLUDING LINCOLN ALLEN DO Apr 15, 2025 05:46
[2025-04-15 06:22] LABS: Amphetamine Screen, Urine Neg (NEGATIVE); Barbiturate Scree,Urine Neg (NEGATIVE); Benzodiazephine Screen, Urine Neg (NEGATIVE); Cannabinoid Screen, Urine Neg (NEGATIVE); Cocaine Screen, Urine Neg (NEGATIVE); Opiate Scree,Urine Neg (NEGATIVE); Phencyclidine Screen, Urine Neg (NEGATIVE)
[2025-04-15 06:36] LABS: Urine Amorphous Crystal FEW /hpf (None Seen); Urine Protein, UAD TRACE (Negative)
[2025-04-15 07:00] VITALS: BP 109/56; PULSE 85; RESP 18; TEMP 98.1; O2SAT 96
[2025-04-15 11:00] VITALS: BP 106/71; PULSE 78; RESP 18; TEMP 98.7; O2SAT 95
[2025-04-15 15:00] VITALS: BP 109/56; PULSE 71; RESP 18; TEMP 98.6; O2SAT 98
[2025-04-15 19:00] VITALS: BP 96/55; PULSE 89; RESP 17; TEMP 98.1; O2SAT 98
[2025-04-15] MEDS: DOCUSATE SOD 100 MG CAP PO SCH (22:00)
[2025-04-15] MEDS: fentaNYL 400mCg/200ml W ROPIVA 200 ML EPI SCH (22:12)
[2025-04-15 23:12] VITALS: BP 99/51; PULSE 79; RESP 16; TEMP 98; O2SAT 99
--- NOTE | 2025-04-16 00:05 | DVHPN2 ---
Progress Note Date Seen: Apr 16, 2025 Subjective S: bleeding is less, eating food without issues, denies lightheaded/dizziness, pain well controlled with oral medications, no concerns with urinating, passing flatus, no BM yet, ambulating well, vital signs Vital Sign Date Time Temp Pulse Resp B/P (MAP) Pulse Ox O2 Delivery O2 Flow Rate FiO2 04/15/25 23:12 98.0 79 16 99/51 (67) 99 98.0 04/15/25 19:30 Room Air Total Intake and Output 04/15/25 04/15/25 04/16/25 15:00 23:00 07:00 Output Total 1800 ml Balance -1800 ml medications Current Medications Medications Dose Ordered Sig/Iva Route Start Time Stop Time Status Last Admin Dose Admin Lactated Ringer's 1,000 ml @ 125 mls/hr Q8H IV 04/15/25 01:45 Nalbuphine HCl 10 mg Q4HP PRN IV 04/15/25 01:45 Witch Georgina 1 pad PRN PRN TOP 04/15/25 01:45 04/15/25 05:09 1 PAD Sodium Lauryl Sulfate 240 ml PRN PRN TOP 04/15/25 01:45 04/15/25 05:09 240 ML Benzocaine 1 applic PRN PRN TOP 04/15/25 01:45 04/15/25 05:09 1 APPLIC Lidocaine HCl 40 ml ONCE PRN IJ 04/15/25 01:45 Fentanyl/ Ropivacaine 200 ml @ 0 mls/hr UD EPI 04/15/25 01:45 04/17/25 01:44 Ibuprofen 600 mg Q6HP PRN PO 04/15/25 05:00 Acetaminophen 650 mg Q4HP PRN PO 04/15/25 05:00 Ondansetron HCl 4 mg Q4HP PRN IV 04/15/25 05:00 Docusate Sodium 200 mg HS PO 04/15/25 22:00 laboratory and microbiology Laboratory Tests 04/15/25 01:54 Test 04/15/25 01:54 Range/Units Serum Glucose 98 74-106 mg/dL Objective O: VSS Chest: heart sounds normal and lung sounds clear bilaterally Abd: soft, non-tender, fundus at U/firm/midline, active bowel sounds, no rebound or guarding Perineum: intact, no erythema/edema noted Ext: Non-tender, No edema, 2+ BLE DTRs Lochia: minimal See lab results Problems(with codes): (1) (normal spontaneous vaginal delivery) (2) Intact perineum (3) Iron deficiency anemia of mother during Assessment/Plan A: 29yo now PPD#1 s/p Anemia Rh+ Rubella Immune P: D/C home today Rx sent to pharmacy precautions and preeclampsia warning signs reviewed F/U with [facility] OB office in 2 weeks Plan discussed with: Patient Visit Coding OBGYN Date of Service: Apr 16, 2025 Billing Provider: CRISS BALBUENA CNM KITCHEN CLERK Common Visit Codes: [id number] INP/OBS CARE(MOD) CRISS BALBUENA CNM Apr 16, 2025 00:04
--- NOTE | 2025-04-16 00:05 | DVHDS2 ---
Obstetrics Discharge Summary Obstetrics Discharge Summary Date of Admission: Apr 15, 2025 Date of Discharge: Apr 16, 2025 Reason For Admission: Onset of Labor Procedures: NST Intrapartum Procedures: Spontaneous vaginal deliv Procedures: Hct/date: (04/16/25), Hgb/date: (04/16/25) Operative Complicat: None Discharge Diagnosis: Term -Delivered Discharge Information: Activity (as tolerated, no heavy lifting and nothing in the vagina for 6 weeks), Diet (Routine), Medications (Rx sent), Instructions (Routine), Discharge to (Home), Accompanied by (partner), Discarge date (04/16/25) Visit Coding OBGYN Date of Service: Apr 16, 2025 Billing Provider: CRISS BALBUENA CNM ENVELOPE MAKER Common Visit Codes: 52662-EFK/OBS DISCH DAY <30MIN CRISS BALBUENA CNM Apr 16, 2025 00:05
[2025-04-16] MEDS ORDERED: FER325T PO (00:29)
[2025-04-16] MEDS ORDERED: IBU600T PO (00:29)
[2025-04-16] MEDS ORDERED: DOCU-265 PO (00:29)
[2025-04-16] MEDS ORDERED: PREN-96 PO (00:29)
[2025-04-16 03:00] VITALS: BP 95/55; PULSE 75; RESP 16; TEMP 98.1; O2SAT 98
[2025-04-16 07:30] VITALS: BP 89/51; PULSE 63; RESP 16; TEMP 97.9; O2SAT 97
[2025-04-16] MEDS: IBUPROFEN 600 MG TAB PO PRN (07:41)
[2025-04-16 08:51] LABS: Hematocrit 28.7 % (36.0-46.0); Hemoglobin 9.6 g/dL (12.2-16.2); Mean Corpuscular Hemoglobin 28.7 pg (28.0-32.0); Mean Corpuscular Volume 86.0 fL (80.0-100.0); Nucleated Red Blood Cells % 0.0 %
[2025-04-16 11:00] VITALS: BP 90/43; PULSE 67; RESP 18; TEMP 98; O2SAT 98
== END 2025-04-16 16:50 | disposition home or self-care (01) | DRG 560 ==
LOC: LDRP 01:19 → OBSVTOIN 01:28 → LDRP 01:33
PROVIDERS: ADMIT Obstetrics & Gynecology; ATTEND Obstetrics & Gynecology
PROC: 10E0XZZ Delivery of Products of Conception, External Approach (ICD-10-PCS; principal; 2025-04-15)
DX: O48.0 Post-term pregnancy (principal); Z37.0 Single live birth; D64.9 Anemia, unspecified; O77.0 Labor and delivery complicated by meconium in amniotic fluid; Z3A.40 40 weeks gestation of pregnancy; O90.81 Anemia of the puerperium; Z91.040 Latex allergy status
CPT/HCPCS: 36415; 59025; 59409; 80053; 80307; 81001; 81002; 85025; 85610; 85730; 86780; 86803; 86850; 86900; 86901; 94760; 96360; 96361; 96365; 96366; 96372; G0378; J2590